=== PATIENT | female | born 1965 ===

== ENCOUNTER 2017-11-26 09:48 | Emergency (ER) | payer MEDICAID, OTHER ==
[2017-11-26] MEDS ORDERED: Sodium Chloride 0.9% 1,000 ML IV STA (10:33)
[2017-11-26] MEDS ORDERED: Morphine 4 mg/ml ISec IVP STA (10:33)
[2017-11-26 10:35] VITALS: BMI 41.9
--- NOTE | 2017-11-26 10:52 | ED PDOC ---
Arrival/HPI - General Chief Complaint: Back Pain Time Seen by Provider: 11/26/17 10:15 Historian: Patient - History of Present Illness Narrative History of Present Illness (Text): 11/26/17 10:40 51 year old female, who presents to the emergency department complaining of one month onset of left flank pain that radiates to lower left abdomen, which she describes as waxing and waning pain. Patient states last night the pain was severe (9/10) and usually the level of pain is 2-4 out of 10. Patient notes going to [facility] 3 weeks prior and had multiple ultrasounds, which diagnosed her with a uterine pathology. Patient was instructed to f/u with PCP and OBGYN. She is under evaluation by Dr. Curtis (OBGYN), and was scheduled for a procedure 2 days ago at [facility]. According to the patient, she received a DNC and uterine biopsy, however patient states complications occurred and procedure was abandoned and re-scheduled in 2 weeks. Patient decided to come in to emergency department because of the worsening pain associated with nausea today. Patient denies vomiting, chest pain, shortness of breath, fever, chills, urinary and bowel changes, fall or trauma. Additionally, patient tried over the counter Motrin with no significant relief. pt is here for further eval pt's without other complaints PMD: Dr. Vicente Ward Time/Duration: 24 hours Symptom Onset: Gradual Symptom Course: Worsening Quality: Tightness, Stabbing, Cramping Severity Level: 9, Severe Activities at Onset: Rest Context: Home Past Medical History - Provider Review Nursing Documentation Reviewed: Yes - Travel History Have you recently traveled outside [place] w/in the past 3 mons?: No - Past History Past History: No Previous - Infectious Disease Hx of Infectious Diseases: None - Tetanus Immunization Tetanus Immunization: Unknown - Reproductive Menopause: Yes Currently : No - Cardiac Hx Cardiac Disorders: No - Pulmonary Hx Respiratory Disorders: Yes Hx Asthma: Yes - Neurological Hx Neurological Disorder: No Other/Comment: LEFT FACE TMJ - HEENT Hx HEENT Disorder: No - Renal Hx Renal Disorder: No - Endocrine/Metabolic Hx Endocrine Disorders: No - Hematological/Oncological Hx Blood Disorders: No - Integumentary Hx Dermatological Disorder: No - Musculoskeletal/Rheumatological Hx Musculoskeletal Disorders: Yes (carpal tunnel) Hx Falls: Yes - Gastrointestinal Hx Gastrointestinal Disorders: Yes - Genitourinary/Gynecological Hx Genitourinary Disorders: No - Psychiatric Hx Psychophysiologic Disorder: No Hx Substance Use: No - Surgical History Hx Section: Yes Hx Cholecystectomy: Yes Hx Eye Surgery: Yes Hx Orthopedic Surgery: Yes (RIGHT KNEE,HEEL spur) - Anesthesia Hx Anesthesia: Yes Hx Anesthesia Reactions: No - Suicidal Assessment Feels Threatened In Home Enviroment: No Family/Social History - Physician Review Nursing Documentation Reviewed: Yes Family/Social History: Unknown Family HX Smoking Status: Never Smoked Hx Alcohol Use: No Hx Substance Use: No Hx Substance Use Treatment: No Allergies/Home Meds Allergies/Adverse Reactions: Allergies No Known Allergies Allergy (Verified 03/21/16 16:26) Home Medications: Home Meds Medication Instructions Recorded Confirmed Ergocalciferol (Vitamin D2) 50,000 units PO .Wednesday03/21/16 03/21/16 [Vitamin D] Meloxicam [Mobic] 15 mg PO PRN PRN 03/21/16 03/21/16 Review of Systems - Physician Review All systems were reviewed & negative as marked: Yes - Review of Systems Constitutional: absent: Fevers Eyes: Normal ENT: Normal Respiratory: absent: SOB Cardiovascular: absent: Chest Pain Gastrointestinal: Abdominal Pain, Nausea, Other (left flank pain radiates to lower left abdomen ). absent: Stool Changes, Vomiting, Appetite Changes Genitourinary Female: absent: Dysuria Musculoskeletal: Normal Skin: Normal Neurological: Normal Endocrine: Normal Hemo/Lymphatic: Normal Psychiatric: Normal Physical Exam - Physical Exam Narrative Physical Exam (Text): 11/26/17 General: alert/awake, GCS = 15, oriented x 3, resting in bed, uncomfortable, cooperative, interactive Head: NC/AT EYE: PERRLA, EOMI, sclera anicteric, no nystagmus, no photophobia Facial: WNL Oral: uvula/tongue are midline, no exudate/lesions, no drooling/stridor, no dysphonia NECK: intact ROM, no midline tenderness, no nuchal rigidity, no meningeal signs Chest: CTA b/l, no w/r/r; no tachypenia, no accessory muscle use noted Cardiac: +S1, +S2, no m/r/r Abdominal: +BS, soft/nd/nt, well nourished patient; no masses/rebound/guarding/ rigidity ext: intact ROM, strength 5/5 grossly intact in all limbs, neurovasc intact b/l SKIN: cap refill < 1 sec, no ulcerations, no petechiae, no rashes NEURO: CNII-XII WNL, no facial asymmetries, no slurr speech, oriented x 3 NIH stroke scale ~ 0 Psych: normal insight, normal affect Vital Signs Reviewed: Yes Vital Signs Temp Pulse Resp BP Pulse Ox 11/26/17 10:09 98 F 68 16 117/60 99 Temperature: Afebrile Blood Pressure: Normal Pulse: Regular Respiratory Rate: Normal Appearance: Positive for: Well-Appearing, Non-Toxic, Comfortable Pain Distress: None Mental Status: Positive for: Alert and Oriented X 3 Medical Decision Making ED Course and Treatment: 11/26/17 Impression: Left flank pain x month 51 year old female with one month onset of worsening left flank pain that radiates to lower left abdomen Plan: -- Labs -- Morphine, Toradol, and Zofran -- Urinalysis -- Ultrasound -- Reassess and disposition Progress Notes: pt is doing well pt is currently awaiting labs/diagnostics 11/26/17 13:[address] Curtis's associate, dr David, made aware of pt's emergency department complaints/dx/mgt, recommend outpt follow up from [facility] perspective 11/26/17 14:04 pt states her left flank pain is currently ~ 6-7/10 pt is made aware of her medical results pt is encouraged fluids pt is encouraged outpt follow up pt will be discharged home Re-evaluation Time: 14:04 Reassessment Condition: Improving,but remains with symptoms - Lab Interpretations Lab Results: 11/26/17 10:57 11/26/17 10:57 Lab Results 11/26/17 10:57: Sodium 145, Chloride 107, Potassium 3.8, Carbon Dioxide 28, Anion Gap 14, BUN 11, Creatinine 0.7, Est GFR ( Amer) > 60, Est GFR (Non- Af Amer) > 60, Random Glucose 102, Calcium 8.3 L, Magnesium 1.9, Total Bilirubin 0.4, AST 21, ALT 24, Alkaline Phosphatase 49, Total Protein 6.8, Albumin 3.7, Globulin 3.2, Albumin/Globulin Ratio 1.2, Lipase 115 11/26/17 10:57: pO2 126 H, VBG pH 7.36, VBG pCO2 51.0, VBG HCO3 28.8 H, VBG Total CO2 30.4 H, VBG O2 Sat (Calc) 98.7 H, VBG Base Excess 2.4 H, VBG Potassium 4.6, Sodium 138.0, Chloride 106.0, Glucose 102, Lactate 1.3, FiO2 21.0 , Venous Blood Potassium 4.6 11/26/17 10:57: Urine Color Yellow, Urine Appearance Cloudy, Urine pH 6.0, Ur Specific [place] 1.010, Urine Protein Negative, Urine Glucose (UA) Negative, Urine Ketones Negative, Urine Blood Trace-lysed H, Urine Nitrate Negative, Urine Bilirubin Negative, Urine Urobilinogen 0.2, Ur Leukocyte Esterase Trace H , Urine RBC 1 - 3, Urine WBC 2 - 5, Ur Epithelial Cells 4 - 5, Urine Bacteria Few 11/26/17 10:57: PT 11.4, INR 0.99, APTT 27.7 11/26/17 10:57: WBC 8.1 D, RBC 4.52, Hgb 14.6, Hct 44.6, MCV 98.7, MCH 32.3, MCHC 32.7, RDW 13.3, Plt Count 214, MPV 11.2 H, Gran % 70.6 H, Lymph % (Auto) 21.2 L, [place] % (Auto) 7.2 H, Eos % (Auto) 0.6 L, Baso % (Auto) 0.4, Gran # 5.70 , Lymph # (Auto) 1.7, [place] # (Auto) 0.6, Eos # (Auto) 0.1, Baso # (Auto) 0.03 I have reviewed the lab results: Yes Interpretation: Abnormal lab values (abnl UA) - RAD Interpretation Narrative RAD Interpretations (Text): 11/26/17 13:32 Transvaginal Ultrasound: Creator : Ever Velázquez MD FINDINGS: UTERUS: Measures 11.0 x 4.1 x 7.1 cm. Normal in size and appearance. No fibroid or other mass lesion seen. ENDOMETRIUM: Measures 8 mm in diameter. Unremarkable. CERVIX: There is a cluster of large nabothian cysts in the cervix. RIGHT OVARY: Not visible LEFT OVARY: Not visible FREE FLUID: No significant free fluid noted. OTHER FINDINGS: None. IMPRESSION: Unremarkable pelvic ultrasound. Radiology Orders: 11/26/17 10:39 TRANSVAGINAL [US] Stat Breakfast Hostess: Radiologist - Medication Orders Current Medication Orders: Sodium Chloride (Sodium Chloride 0.9%) 1,000 mls @ 100 mls/hr IV .Q10H STA Stop: 11/26/17 20:32 Last Admin: 11/26/17 11:07 Dose: 100 mls/hr eMAR Start Stop Document 11/26/17 11:07 [email or web address] (Rec: 11/26/17 11:07 [email or web address] [id number]) Intravenous Solution Start Date 11/26/17 Start Time 11:07 End Date 11/26/17 Discontinued Medications Ketorolac Tromethamine (Toradol) 15 mg IVP STAT STA Stop: 11/26/17 10:40 Last Admin: 11/26/17 11:06 Dose: 15 mg MAR Pain Assessment Document 11/26/17 11:06 [email or web address] (Rec: 11/26/17 11:07 [email or web address] [id number]) Pain Reassessment Is this a pain reassessment? No Sleep Is patient sleeping during reassessment? No Presence of Pain Presence of Pain Yes Pain Scale Used Pain Scale Used Numeric Location Pain Location Body Site Abdomen Description Description Constant Intensity of Pain at present 9 Pain Behavior Facial Grimacing Aggravating Factors Changing Position Alleviating Factors/Management Medication Techniques Alleviating Factors Medication IVP Administration Document 11/26/17 11:06 [email or web address] (Rec: 11/26/17 11:07 [email or web address] [id number]) Charges for Administration # of IVP Administrations 1 Morphine Sulfate (Morphine) 4 mg IVP STAT STA Stop: 11/26/17 10:34 Last Admin: 11/26/17 11:07 Dose: 4 mg MAR Pain Assessment Document 11/26/17 11:07 [email or web address] (Rec: 11/26/17 11:07 [email or web address] [id number]) Pain Reassessment Is this a pain reassessment? No Sleep Is patient sleeping during reassessment? No Presence of Pain Presence of Pain Yes Pain Scale Used Pain Scale Used Numeric Location Pain Location Body Site Abdomen Description Description Constant Intensity of Pain at present 9 Pain Behavior Facial Grimacing Aggravating Factors Changing Position Alleviating Factors/Management Medication Techniques Alleviating Factors Medication IVP Administration Document 11/26/17 11:07 [email or web address] (Rec: 11/26/17 11:07 [email or web address] [id number]) Charges for Administration # of IVP Administrations 1 Ondansetron HCl (Zofran Inj) 4 mg IVP STAT STA Stop: 11/26/17 10:34 Last Admin: 11/26/17 11:06 Dose: 4 mg IVP Administration Document 11/26/17 11:06 [email or web address] (Rec: 11/26/17 11:06 [email or web address] [id number]) Charges for Administration # of IVP Administrations 1 - Scribe Statement The provider has reviewed the documentation as recorded by the Scribe Laverne Velasco Provider Scribe Attestation: All medical record entries made by the Scribe were at my direction and personally dictated by me. I have reviewed the chart and agree that the record accurately reflects my personal performance of the history, physical exam, medical decision making, and the department course for this patient. I have also personally directed, reviewed, and agree with the discharge instructions and disposition. Disposition/Present on Arrival - Present on Arrival Any Indicators Present on Arrival: No History of DVT/PE: No History of Uncontrolled Diabetes: No Urinary Catheter: No History of Decub. Ulcer: No History Surgical Site Infection Following: None - Disposition Have Diagnosis and Disposition been Completed?: Yes Diagnosis: UTI (urinary tract infection), Flank pain Disposition: HOME/ ROUTINE Disposition Time: 14:06 Patient Plan: Discharge Condition: STABLE Discharge Instructions (ExitCare): Urinary Tract Infections in Adults, Flank Pain Print Language: LEBANESE Additional Instructions: Make sure to see your doctor in 1-2 days DRINK PLENTY OF FLUIDS take your medications as prescribed RETURN TO ED IF worse pain, cant breath, persistent vomiting, high fever >101- 102 for hours, altered behavior, slurr speech, facial changes, focal weakness ( arm/leg or both), unable to urinate, heavy/persistent bleeding, passing out, chest pain, or other medical emergencies Prescriptions: Ibuprofen [Motrin] 600 mg PO QID PRN #30 tab PRN Reason: Pain, Mild (1-3) Nitrofurantoin Macrocrystals [Macrobid] 100 mg PO BID #13 cap oxyCODONE/Acetaminophen [Percocet 5/325 mg Tab] 1 tab PO TID PRN #12 tab PRN Reason: Pain, Moderate (4-7) Referrals: Rajat Ward MD [Primary Care Provider] - Follow up with primary Donte Curtis MD [Medical Doctor] - Follow up with primary Forms: [employer] ([employer]), WORK NOTE
[2017-11-26 11:03] LABS: VENOUS BLOOD GAS BASE EXCESS 2.4 mmol/L (0.0-2.0); VENOUS BLOOD GAS PO2 126 mm/Hg (30-55); VENOUS BLOOD PH 7.36 (7.32-7.43)
[2017-11-26 11:04] LABS: BASO # 0.03 K/mm3 (0.0-2.0); BASO % 0.4 % (0.0-3.0); EOS # 0.1 (0.0-0.7); EOS % 0.6 % (1.5-5.0); GRAN # 5.7 (1.4-6.5); GRAN % 70.6 % (50.0-68.0); HEMOGLOBIN 14.6 g/dL (12.0-16.0); LYMPH # 1.7 (1.2-3.4); LYMPH % 21.2 % (22.0-35.0); MEAN CELL VOLUME 98.7 fl (80.0-105.0); MEAN CORPUSCULAR HEMOGLOBIN 32.3 pg (25.0-35.0); MEAN CORPUSCULAR HGB CONC 32.7 g/dl (31.0-37.0); MEAN PLATELET VOLUME 11.2 fl (7.0-11.0); MONO # 0.6 (0.1-0.6); MONO % 7.2 % (1.0-6.0); RBC 4.52 10^6/uL (3.5-6.1); RED CELL DISTRIBUTION WIDTH 13.3 % (11.5-14.5); URINE BILIRUBIN NEGATIVE (NEGATIVE); URINE BLOOD TRACE-LYSED (NEGATIVE); URINE GLUCOSE (UA) NEGATIVE (NEGATIVE); URINE LEUKOCYTE ESTERASE TRACE Leu/uL (NEGATIVE); URINE PROTEIN NEGATIVE mg/dL (<30 mg/dL); URINE UROBILINOGEN 0.2 E.U./dL (<1 E.U./dL); WHITE BLOOD COUNT 8.1 10^3/ul (4.5-11.0)
[2017-11-26 11:07] LABS: URINE APPEARANCE CLOUDY (CLEAR); URINE COLOR YELLOW (YELLOW)
[2017-11-26 11:27] LABS: INR 0.99 (0.93-1.08); PARTIAL THROMBOPLASTIN TIME 27.7 Seconds (25.1-36.5); PROTHROMBIN TIME 11.4 SECONDS (9.4-12.5)
[2017-11-26 11:32] LABS: ALB/GLOB RATIO 1.2 (1.1-1.8); ALBUMIN 3.7 g/dL (3.0-4.8); ALT/SGPT 24 U/L (7-56); AST/SGOT 21 U/L (14-36); BLOOD UREA NITROGEN 11 mg/dL (7-21); CALCIUM 8.3 mg/dL (8.4-10.5); GFR AFRICAN-AMERICAN > 60; GFR NON-AFRICAN AMERICAN > 60; LIPASE 115 U/L (23-300)
[2017-11-26 11:34] LABS: URINE BACTERIA FEW (NEG)
--- NOTE | 2017-11-26 12:57 | US ---
HISTORY: severe left lower abd pain, abnl finds 3 wks ago COMPARISON: None available. TECHNIQUE: FINDINGS: UTERUS: Measures 11.0 x 4.1 x 7.1 cm. Normal in size and appearance. No fibroid or other mass lesion seen. ENDOMETRIUM: Measures 8 mm in diameter. Unremarkable. CERVIX: There is a cluster of large nabothian cysts in the cervix. RIGHT OVARY: Not visible LEFT OVARY: Not visible FREE FLUID: No significant free fluid noted. OTHER FINDINGS: None. IMPRESSION: Unremarkable pelvic ultrasound.
[2017-11-26] MEDS ORDERED: Oxycodone/Acetaminophen 5/325 mg Tab PO STA (14:05)
[2017-11-26 14:19] VITALS: BP 133/70
[2017-11-26 14:32] VITALS: PULSE 71; RESP 19; TEMP 98; O2SAT 100
== END 2017-11-26 14:32 | disposition home or self-care (01) ==
LOC: ED 09:48
DX: N39.0 Urinary tract infection, site not specified (principal); R10.9 Unspecified abdominal pain
CPT/HCPCS: 76830; 80053; 81001; 82803; 83690; 83735; 85025; 85610; 85730; 87086; 96374; 96375; 99284; J1885; J2270; J2405; J7040